=== PATIENT | female | born 1980 | race African-American/Black ===

== ENCOUNTER 2022-05-30 13:02 | Emergency (ER) | payer MEDICAID ==
[~2022-05-30] VITALS: Ht 172.7 cm; Wt 91.0 kg
[2022-05-30 13:07] VITALS: BP 125/73
== END 2022-05-30 14:49 | disposition left against medical advice (07) ==
LOC: ER 13:02
DX: Z53.21 Procedure and treatment not carried out due to patient leaving prior to being seen by health care provider (principal)
CPT/HCPCS: 99281